=== PATIENT | male | born 1990 | race Caucasian/White ===

== ENCOUNTER 2016-10-26 14:49 | Emergency (ER) | payer BC ==
[2016-10-26 15:16] VITALS: BP 143/80
[2016-10-26] MEDS ORDERED: Albuterol/Ipratropium NEB.SOL* Albuterol 2.5 MG/Ipratropium 0.5 MG 3 ML INH ONE (15:37)
--- NOTE | 2016-10-26 15:57 | UC ---
Respiratory Complaint HPI - HPI Summary HPI Summary: NO PRIMARY CARE, RUNNING OUT OF ALBUTEROL AND FLOVENT; FOR THREE YEARS HAS BEEN MANAGING HIS ASTHMA THROUGH CONVENIENT CARES AND EMERGENCY DEPARTMENTS, GETTING REFILLS. HAS BEEN THREE YEARS SINCE ANY PEAK FLOW OR AND ASTHMA TESTING. PATIENT IS A SMOKER. - History of Current Complaint Chief Complaint: UCMedRefill Stated Complaint: MED REFILL Time Seen by Provider: 10/26/16 15:23 Hx Obtained From: Patient Onset/Duration: Gradual Onset, Lasting Weeks, Still Present Severity Initially: Mild Severity Currently: Mild Character: Cough: Nonproductive Aggravating Factors: Allergens, Exertion, Deep Breaths Alleviating Factors: Bronchodilator, OTC Meds Associated Signs And Symptoms: Positive: Wheezing - Risk Factors Pulmonary Embolism Risk Factors: Negative Cardiac Risk Factors: Smoking Pseudomonas Risk Factors: Negative Tuberculosis Risk Factors: Negative, Smoking - Allergies/Home Medications Allergies/Adverse Reactions: Allergies Allergy/AdvReac Type Severity Reaction Status Date / Time No Known Allergies Allergy Verified 10/26/16 15:16 PMH/Surg Hx/FS Hx/Imm Hx Previously Healthy: Yes Endocrine History Of: Denies: Diabetes, Thyroid Disease Cardiovascular History Of: Denies: Cardiac Disorders, Hypertension Respiratory History Of: Reports: Asthma Denies: COPD GI/ History Of: Denies: Ulcer - Surgical History Surgical History: Yes Surgery Procedure, Year, and Place: t&a - Family History Known Family History: Positive: None - Social History Occupation: Employed Full-time Lives: With Family Alcohol Use: Rare Substance Use Type: Cocaine, Marijuana Substance Use Comment - Amount & Last Used: daily - cocaine use on occassion Smoking Status (MU): Heavy Every Day Tobacco Smoker Amount Used/How Often: 1/2 ppd Household Exposure Type: Cigarettes Review of Systems Constitutional: Negative Skin: Negative Eyes: Negative ENT: Negative Respiratory: Shortness Of Breath, Cough Cardiovascular: Negative Gastrointestinal: Negative Genitourinary: Negative Motor: Negative Neurovascular: Negative Musculoskeletal: Negative Neurological: Negative Psychological: Negative All Other Systems Reviewed And Are Negative: Yes Physical Exam Triage Information Reviewed: Yes Appearance: Well-Appearing, No Pain Distress, Well-Nourished Vital Signs: Initial Vital Signs Temp 98.3 F 10/26/16 15:14 Pulse 82 10/26/16 15:14 Resp 20 10/26/16 15:14 BP 143/80 02/23/17 15:14 Pulse Ox 97 10/26/16 15:14 Vital Signs Reviewed: Yes Eye Exam: Normal ENT Exam: Normal ENT: Positive: Normal ENT inspection, Hearing grossly normal, Pharynx normal, TMs normal Dental Exam: Normal Neck exam: Normal Neck: Positive: Supple, Nontender, No Lymphadenopathy Respiratory: Positive: Chest non-tender, No respiratory distress, No accessory muscle use, Wheezing. Negative: Respiratory distress, Decreased breath sounds, Accessory muscle use Cardiovascular Exam: Normal Cardiovascular: Positive: RRR, No Murmur, Pulses Normal, Brisk Capillary Refill Abdominal Exam: Normal Abdomen Description: Positive: Nontender, No Organomegaly Musculoskeletal Exam: Normal Musculoskeletal: Positive: Strength Intact, ROM Intact Neurological Exam: Normal Psychological Exam: Normal Psychological: Positive: Normal Response To Family Skin Exam: Normal UC Diagnostic Evaluation - Laboratory O2 Sat by Pulse Oximetry: 97 Respiratory Course/Dx - Differential Dx/Diagnosis Differential Diagnosis/HQI/PQRI: Asthma, Bronchitis, Exacerbation Of COPD, Sinusitis, Tuberculosis Provider Diagnoses: ASTHMA Discharge - Discharge Plan Condition: Stable Disposition: HOME Prescriptions: Albuterol HFA INHALER* [Ventolin HFA Inhaler*] 1 - 2 puff INH Q4H PRN #1 mdi PRN Reason: Wheezing Fluticasone HFA 110 mcg(NF) [Flovent HFA 110 mcg(NF)] 1 puff INH BID #1 mdi Patient Education Materials: Asthma (ED), Bronchospasm (ED) Referrals: [facility] PHYSICIAN REFERRAL [Outside] Joaquim Wilkins MD [Medical Doctor] - No Primary Care Phys,NOPCP [Primary Care Provider] - Additional Instructions: YOUR VISIT HISTORY SUGGESTS THAT YOUR ASTHMA HAS BEEN UNMANAGED BY ANY PRIMARY CARE PHYSICIAN FOR THREE YEARS. YOU ARE STRONGLY ADVISED TO SEEK ASTHMA MAINTENANCE AND EVALUATION FOR THIS CONCERN THROUGH PRIMARY CARE. REFERRAL SERVICE INFORMATION HAS BEEN GIVEN TO YOU TO ADDRESS THIS CONCERN.
== END 2016-10-26 16:17 | disposition home or self-care (01) ==
LOC: UCEAST 14:49
DX: J45.909 Unspecified asthma, uncomplicated (principal); Z76.0 Encounter for issue of repeat prescription; R03.0 Elevated blood-pressure reading, without diagnosis of hypertension; F14.90 Cocaine use, unspecified, uncomplicated; F12.90 Cannabis use, unspecified, uncomplicated; F17.210 Nicotine dependence, cigarettes, uncomplicated
CPT/HCPCS: 99212; A9270-GY; G0463

== ENCOUNTER 2018-06-04 18:47 | Observation (INO) | payer SELFPAY ==
[2018-06-04] MEDS ORDERED: methylPREDNISolone 125 MG* 2 ML VIAL IV ONE (21:36)
[2018-06-04] MEDS ORDERED: Albuterol/Ipratropium NEB.SOL* Albuterol 2.5 MG/Ipratropium 0.5 MG 3 ML INH ONE (21:37)
[2018-06-04] MEDS ORDERED: NS 0.9% 1000 ML* 1,000 ML IV ONE (21:39)
[2018-06-04] MEDS ORDERED: Magnesium Sulfate 2 GM IV* 2 GM/50 ML BAG IVPB ONE (21:39)
--- NOTE | 2018-06-04 21:39 | ED ---
Asthma - HPI Summary HPI Summary: This patient is a 27 year old M presenting to [facility] accompanied by his girlfriend with a chief complaint of SOB since 1 month ago. He endorses frequently using rx albuterol inhaler and nebulizer; 7 or 8x today. He endorses productive cough with yellow sputum, diffuse CP. He denies chills. Pt endorses 1x admission to hospital for asthma a long time ago. - History of Current Complaint Chief Complaint: EDAsthma Stated Complaint: CHEST PAIN/DIFFICULTY BREATHING Time Seen by Provider: 06/04/18 21:22 Hx Obtained From: Patient Onset/Duration: Gradual Onset, Lasting Weeks, Still Present Timing: Constant Initial Severity: Moderate Current Severity: Moderate Pain Intensity: 4 Pain Scale Used: 0-10 Numeric Location/Character: Cough (Productive) Aggravating Symptoms: Nothing Alleviating Symptoms: Inhalers/Nebulizers Associated Signs and Symptoms: Positive: Shortness of Breath Related History: Similar Episode/Dx as - PMHx asthma - Allergy/Home Medications Allergies/Adverse Reactions: Allergies Allergy/AdvReac Type Severity Reaction Status Date / Time amoxicillin Allergy Unknown Verified 06/04/18 19:09 Reaction Details shellfish derived Allergy Anaphylatic Verified 06/04/18 19:09 Shock PMH/Surg Hx/FS Hx/Imm Hx Endocrine/Hematology History: Denies: Hx Diabetes, Hx Thyroid Disease Cardiovascular History: Denies: Hx Hypertension Respiratory History: Reports: Hx Asthma Denies: Hx Chronic Obstructive Pulmonary Disease (COPD) GI History: Denies: Hx Ulcer History: Denies: Hx Dialysis Sensory History: Denies: Hx Legally Blind, Hx Deafness Opthamlomology History: Denies: Hx Legally Blind EENT History: Denies: Hx Deafness - Surgical History Surgery Procedure, Year, and Place: t&a Infectious Disease History: No Infectious Disease History: Denies: Hx Hepatitis, Hx Human Immunodeficiency Virus (HIV), History Other Infectious Disease, Traveled Outside the [place] in Last 30 Days - Family History Known Family History: Negative: Blood Disorder - Social History Lives: With Family Alcohol Use: Rare Substance Use Type: Reports: Cocaine, Marijuana Substance Use Comment - Amount & Last Used: daily - cocaine use on occassion Smoking Status (MU): Heavy Every Day Tobacco Smoker Amount Used/How Often: 1/2 ppd Review of Systems Negative: Fever, Chills Positive: Chest Pain Positive: Shortness Of Breath, Cough Positive: no symptoms reported All Other Systems Reviewed And Are Negative: Yes Physical Exam - Summary Physical Exam Summary: VITAL SIGNS: Reviewed. GENERAL: Patient is a well-developed and nourished male who is lying comfortable in the stretcher. Patient is not in any acute respiratory distress. HEAD AND FACE: No signs of trauma. No ecchymosis, hematomas or skull depressions. No sinus tenderness. EYES: PERRLA, EOMI x 2, No injected conjunctiva, no nystagmus. EARS: Hearing grossly intact. Ear canals and tympanic membranes are within normal limits. MOUTH: Oropharynx within normal limits. NECK: Supple, trachea is midline, no adenopathy, no JVD, no carotid bruit, no c- spine tenderness, neck with full ROM. CHEST: Symmetric, no tenderness at palpation LUNGS: No crackles. Inspiratory and expiratory wheezes. CVS: Regular rate and rhythm, S1 and S2 present, no murmurs or gallops appreciated. ABDOMEN: Soft, non-tender. No signs of distention. No rebound no guarding, and no masses palpated. Bowel sounds are normal. EXTREMITIES: FROM in all major joints, no edema, no cyanosis or clubbing. NEURO: Alert and oriented x 3. No acute neurological deficits. Speech is normal and follows commands. SKIN: Dry and warm Triage Information Reviewed: Yes Vital Signs On Initial Exam: Initial Vitals Temp Pulse Resp BP Pulse Ox 98.1 F 112 20 127/83 94 06/04/18 19:03 06/04/18 19:03 06/04/18 19:03 06/04/18 19:03 06/04/18 19:03 Vital Signs Reviewed: Yes Diagnostics - Vital Signs Vital Signs Temp Pulse Resp BP Pulse Ox 06/04/18 19:03 98.1 F 112 20 127/83 94 - Laboratory Result Diagrams: 06/04/18 21:54 06/04/18 21:54 Lab Statement: Any lab studies that have been ordered have been reviewed, and results considered in the medical decision making process. - Radiology CXR Xray Interpretation: No Acute Changes Radiology Interpretation Completed By: ED Physician - No acute process. Pending official imaging report. Asthma Course/Dx - Course Course Of Treatment: A 27-year-old M presents to the ED with a CC of SOB secondary to PMHx asthma for 1 month. (+) wheeze, CP, productive cough. (-) fever, chills. 7-8 uses of albuterol inhaler and nebulizer today. A CXR was (-) . In the ED course, pt was given ventolin, duoneb, magnesium sulfate, solumedrol , and nl saline. - Diagnoses Provider Diagnoses: Asthma - Provider Notifications Discussed Care Of Patient With: Marisela Hall Time Discussed With Above Provider: 23:13 Instructed by Provider To: Other - accepts admission Discharge - Sign-Out/Discharge Documenting (check all that apply): Patient Departure - admit - Discharge Plan Condition: Fair Disposition: ADMITTED TO [facility] Referrals: No Primary Care Phys,NOPCP [Primary Care Provider] - - Attestation Statements Document Initiated by Scribe: Yes Documenting Scribe: Mike Gomez Provider For Whom Scribe is Documenting (Include Credential): Dr. Leta Camp MD Scribe Attestation: Mike Spencer, scribed for Dr. Leta Camp MD on 06/04/18 at 2313.
[2018-06-04] MEDS ORDERED: Albuterol 2.5 MG/3 ML NEB.SOL* (0.083%) INH SCH (22:00)
[2018-06-04 22:02] LABS: ABS Basophils 0.1 10^3/ul (0-0.2); ABS Eosinophils 0.8 10^3/ul (0-0.6); ABS Lymphocytes 2.4 10^3/ul (1.0-4.8); ABS Monocytes 1.1 10^3/ul (0-0.8); ABS Neutrophils 4.5 10^3/ul (1.5-7.7); ABS Nucleated RBC 0 10^3/ul; Hematocrit 49 % (42-52); Hemoglobin 17.1 g/dl (14.0-18.0); Lymphocyte % 27.5 % (25-47); Mean Corpuscular HGB Conc 35 g/dl (31-36); Mean Corpuscular Hemoglobin 30 pg (27-31); Mean Corpuscular Volume 87 fL (80-94); Mean Platelet Volume 7.2 um3 (7.4-10.4); Nucleated Red Blood Cells % 0.2; Platelet Count 359 10^3/ul (150-450); Red Blood Count 5.63 10^6/ul (4.00-5.40); Red Cell Distribution Width 13 % (10.5-15); White Blood Count 8.9 10^3/ul (3.5-10.8)
[2018-06-05] MEDS ORDERED: Acetaminophen TAB* 325 MG PO PRN (00:16)
[2018-06-05] MEDS ORDERED: Ondansetron INJ* 2 MG/ML VIAL IV PRN (00:16)
[2018-06-05] MEDS ORDERED: Al Hydrox/Mg Hydrox/Simet LIQ* 30 ML UDC PO PRN (00:16)
[2018-06-05] MEDS ORDERED: Albuterol/Ipratropium NEB.SOL* Albuterol 2.5 MG/Ipratropium 0.5 MG 3 ML INH PRN (00:18)
[2018-06-05] MEDS ORDERED: Albuterol 2.5 MG/3 ML NEB.SOL* (0.083%) INH PRN (00:18)
[2018-06-05] MEDS ORDERED: Nicotine Inhaler* 10 MG AMP INH PRN (00:31)
[2018-06-05] MEDS ORDERED: Mouth Piece, Nicotine* 1 EACH CARTRIDGE INH PRN (00:31)
[2018-06-05] MEDS ORDERED: Mouth Piece, Nicotine* 1 EACH CARTRIDGE INH ONE (00:31)
[2018-06-05] MEDS: NS 0.9% 1000 ML* 1,000 ML IV SCH ×2 (01:21→08:07)
--- NOTE | 2018-06-05 05:20 | HP ---
CC: Primary care physician at the [facility] * HISTORY AND PHYSICAL: DATE OF ADMISSION: 06/05/18 TIME OF EVALUATION: 0000. PRIMARY CARE PHYSICIAN: Primary care physician at the [facility]. CHIEF COMPLAINT: Shortness of breath. HISTORY OF PRESENT ILLNESS: This is a 27-year-old male with past medical history of asthma and tobacco use who presented to the emergency room with worsening shortness of breath. The patient states he has had issues with mold and mildew at his house. He began with asthma symptoms of cough, shortness of breath about a month ago. He moved out last week. His shortness of breath has continued with coughing. He feels short of breath at rest. He has a productive cough with constant chest pain. He has had some issues with posttussive emesis as well. He does have albuterol inhaler with no spacer and a nebulizer that he has been using almost as frequently as every hour with no improvement in his symptoms. He denies any fevers. No abdominal symptoms or urinary symptoms. He states he has been gaining weight. No lower extremity swelling. Otherwise, review of systems negative. In the emergency room, the patient had labs, imaging. He was given a liter of fluids, Solu-Medrol 125, magnesium, DuoNeb and referred to the hospitalist service for further evaluation. PAST MEDICAL HISTORY: 1. Asthma. 2. Tobacco use. 3. Marijuana use. MEDICATIONS: Albuterol MDI and nebulizer as needed. ALLERGIES: AMOXICILLIN AND SHELLFISH. FAMILY HISTORY: Parents are alive and healthy. Sister does have exercise- induced asthma. SOCIAL HISTORY: The patient lives with his girlfriend, Rajni Shelley, who is his healthcare proxy. He smokes 3 cigarettes per day. He uses marijuana nearly daily. No alcohol use. He works as a cook. Code status: Full code. REVIEW OF SYSTEMS: A 14-point review of systems as mentioned in the HPI, otherwise negative. PHYSICAL EXAMINATION GENERAL: No acute distress. Resting comfortably with his girlfriend at the bedside. VITAL SIGNS: Temp 98.1, pulse rate 92, respiratory rate 20, oxygen saturation 95% on 3 L, blood pressure 149/90. HEENT: Head: Normocephalic. Pupils are equal and reactive. Anicteric. Oropharynx: Mucous membranes are moist. NECK: Supple. No lymphadenopathy. RESPIRATORY: Diminished breath sounds. Bilateral coarse expiratory wheezing. No increased work of breathing. No tachypnea. CARDIAC: Regular rate and rhythm. Soft systolic murmur heard throughout. ABDOMEN: Soft, nontender, nondistended. EXTREMITIES: No clubbing, cyanosis or edema. +1 DPs. NEUROLOGICAL: Alert and oriented x3. No gross focal neurologic deficits. LABORATORY DATA: White count 8.9, hemoglobin 7.1, platelets 359,000. Sodium 139, potassium 4.1, chloride 104, bicarb 28. BUN 16, creatinine 1.03. Glucose 88. Total bilirubin 1.5. AST 41, ALT 82. RADIOGRAPHIC DATA: Chest x-ray is unremarkable. ASSESSMENT AND PLAN: This is a 27-year-old male with past medical history of asthma and tobacco use who presented to the emergency room with 1 month of worsening cough, chest pain, shortness of breath. 1. Asthma exacerbation. Assessment: The patient with asthma exacerbation, may likely be secondary to the mold, mildew exposure that he has since moved out of. No other associated symptoms of viral syndrome or bacterial infection. Chest x-ray is unremarkable. He does have chest pain. He does not have any cardiac risk factors. Plan: We will check an EKG. Continue treatment for asthma exacerbation including continue prednisone, albuterol, DuoNeb and start him on Dulera. The patient is concerned about insurance and cost of his medications. We will consult social work to help assist with this. If the patient is not improving clinically, would recommend further workup at this time. No further workup is indicated. 2. Tobacco use. We will prescribe an inhaler. 3. Elevated LFTs A. Mild elevation. Suspect underlying HURTADO. Recommend outpatient work up for further evaluation 4. FEN. Regular diet with IV fluids. 5. DVT prophylaxis. The patient scores moderate risk. Place him on heparin subcu t.i.d. 6. Code status: Full code. TIME SPENT: Greater than 45 minutes were spent doing the history and physical, more than half the time was spent in direct patient contact. [id number]/[facility] #: [id number] MTDD
[2018-06-05] MEDS ORDERED: Heparin VIAL(*) 5000 UNITS/ML VIAL (FIVE THOUSAND) SUBCUT SCH (06:00)
[2018-06-05] MEDS: Albuterol 2.5 MG/3 ML NEB.SOL* (0.083%) INH SCH ×2 (07:27→10:55)
--- NOTE | 2018-06-05 07:53 | RAD ---
Indication: Shortness of breath. Asthma. Comparison: No relevant prior exams available on the [facility] PACS for comparison. Technique: Upright AP 2200 hours Report: Mild patchy consolidation at the LEFT lower lung zone without volume loss suspicious for potential pneumonia. Negative for pleural effusion or pneumothorax. The heart, pulmonary vasculature, and mediastinal contours are unremarkable. IMPRESSION: #. Mild patchy consolidation at the LEFT lower lung zone without volume loss suspicious for potential pneumonia. R1
[2018-06-05] MEDS ORDERED: Mometasone/Formoter 200/5 MDI INH SCH (09:00)
[2018-06-05] MEDS ORDERED: predniSONE TAB* 20 MG PO SCH (09:00)
[2018-06-05 13:05] VITALS: BP 166/62
--- NOTE | 2018-06-06 04:40 | DS ---
CC: Dr. Marisela Hall; Dr. Leta Camp * DISCHARGE SUMMARY: DATE OF ADMISSION: DATE OF DISCHARGE: 06/05/18 DISCHARGE DIAGNOSES: As follows: 1. Asthma exacerbation. 2. Tobacco abuse, the patient was advised to quit smoking. HISTORY OF PRESENT ILLNESS/HOSPITAL COURSE: The patient is a 27-year-old gentleman with history of asthma and tobacco abuse, who presented to the emergency room with worsening shortness of breath where he stated that he has had issues with mold and mildew at his house and his asthma symptoms began worsening, which started with cough, then shortness of breath about a month ago. He mentioned that he moved out last week from his house; however, he continued coughing and felt short of breath leading to his presentation where he was diagnosed with asthma exacerbation. Today, he feels better with good air entry on exam and only occasional squeaks on exam. The patient also had an ambulatory sats prior to his discharge and has done well, not requiring any additional oxygen or any form of oxygen on discharge. The patient had been advised to follow up and/or call his PCP within 3 days post discharge. He was advised that if his symptoms resume or develop new ones or feel unwell for any reason to call his PCP and if his PCP cannot entertain him due to his scheduling issues alone to call [facility] if the issue is non- emergent. He was advised to stop smoking and to use his nicotine inhalers prescribed for him instead. He was advised to call my office regarding any questions, concerns, or further clarifications regarding his discharge plans and/or prescriptions and to take his medications as prescribed. REVIEW OF SYSTEMS: The patient denied any recent headaches, dizziness, fevers, chills, nausea, vomiting. His shortness of breath has significantly improved. Denies any chest pain. Denied any abdominal pain, diarrhea, constipation, pain , and/or increased frequency on urination, myalgias, arthralgias, throat pain, or new skin lesions. The rest of the 14-point review of systems are otherwise unremarkable. PHYSICAL EXAMINATION: Shows the most recent vital signs of records with temperature of 98 degree Fahrenheit, saturating at 97% on room air, blood pressure of 166/62 from 153/53 and 136/69. General Appearance: The patient is awake, alert, and oriented x3, not in acute distress. HEENT: Normocephalic, atraumatic. PERRLA. Extraocular muscles intact. Negative for icterus. Moist oral mucosa. Negative throat erythema. Neck is soft, supple with no cervical lymphadenopathy, no JVD. Heart: S1, S2 within normal limits. Regular rate and rhythm. No murmurs, rubs, or gallops. Chest: Occasional squeaks, but otherwise with good air entry. No rales, no rhonchi, no wheezes appreciated. Abdomen is soft, nondistended, nontender. Normoactive bowel sounds x4 Q. Extremities: No cyanosis, clubbing, or edema. Psychiatric: No active psychosis, depression, suicidal nor homicidal ideation. Skin is warm to touch. DISCHARGE MEDICATIONS: As follows: 1. Dulera 200/5 MDI 2 puffs inhalation b.i.d. 2. Nicotine inhaler 10 mg inhaler q.2 hours p.r.n. 3. Prednisone taper as prescribed. 4. Albuterol HFA inhaler q.4 hours p.r.n. 5. Amlodipine 2.5 mg p.o. daily. TIME SPENT: The total time spent evaluating the patient, reviewing pertinent data, and appropriate documentation is 35 minutes. [id number]/[facility] #: [id number] TIGIST
== END 2018-06-05 15:00 | disposition home or self-care (01) ==
LOC: ED 18:47 → MED 06-05 00:16
PROVIDERS: ADMIT Pediatrics; ATTEND Student in an Organized Health Care Education/Training Program
DX: J45.901 Unspecified asthma with (acute) exacerbation (principal); F17.210 Nicotine dependence, cigarettes, uncomplicated; R74.8 Abnormal levels of other serum enzymes; Z79.899 Other long term (current) drug therapy; Z88.0 Allergy status to penicillin
CPT/HCPCS: 36415; 71045; 80053; 83880; 84484; 85025; 87070; 87205; 94640; 96361; 96365; 96375; 99284; A9270-GY; G0378; J2930; J3475; J7512

== ENCOUNTER 2018-09-13 03:40 | Observation (INO) | payer SELFPAY ==
[2018-09-13] MEDS ORDERED: Albuterol/Ipratropium NEB.SOL* Albuterol 2.5 MG/Ipratropium 0.5 MG 3 ML INH ONE (03:57)
[2018-09-13] MEDS ORDERED: methylPREDNISolone 125 MG* 2 ML VIAL IV ONE (03:58)
[2018-09-13] MEDS ORDERED: Magnesium Sulfate 2 GM IV* 2 GM/50 ML BAG IVPB ONE (03:59)
[2018-09-13] MEDS ORDERED: NS 0.9% 1000 ML** 1,000 ML IV ONE (03:59)
--- NOTE | 2018-09-13 04:00 | ED ---
Asthma - HPI Summary HPI Summary: This pt is a 28 y/o male presenting to [facility] c/o asthma exacerbation. Pt reports he has been coughing for 1 week or more, associated with SOB. Pt has used his asthma inhaler "50 times over the past 4 hours." Denies fever, chest pain, nausea, vomiting. He does not have a PCP and his inhaler is prescribed by the [facility]. Pt states he can't afford anything else. Pt is a former smoker, quit in June 2018. PMHx: pt has had asthma all his life. He has never been intubated in the past. Pt has been admitted twice last year for asthma. - History of Current Complaint Chief Complaint: EDAsthma Stated Complaint: ASTHMA Time Seen by Provider: 09/13/18 03:47 Hx Obtained From: Patient Onset/Duration: Lasting Weeks - at least 1, Still Present Timing: Weeks Current Severity: Moderate Pain Intensity: 4 Pain Scale Used: 0-10 Numeric Location/Character: Cough (Nonproductive) Aggravating Symptoms: Nothing Alleviating Symptoms: Nothing Associated Signs and Symptoms: Positive: Shortness of Breath - Allergy/Home Medications Allergies/Adverse Reactions: Allergies Allergy/AdvReac Type Severity Reaction Status Date / Time amoxicillin Allergy Unknown Verified 09/13/18 03:52 Reaction Details shellfish derived Allergy Anaphylatic Verified 09/13/18 03:52 Shock PMH/Surg Hx/FS Hx/Imm Hx Endocrine/Hematology History: Denies: Hx Diabetes, Hx Thyroid Disease Cardiovascular History: Denies: Hx Hypertension Respiratory History: Reports: Hx Asthma Denies: Hx Chronic Obstructive Pulmonary Disease (COPD) GI History: Denies: Hx Ulcer History: Denies: Hx Dialysis Sensory History: Denies: Hx Contacts or Glasses, Hx Legally Blind, Hx Deafness, Hx Hearing Aid Opthamlomology History: Denies: Hx Contacts or Glasses, Hx Legally Blind - Surgical History Surgery Procedure, Year, and Place: t&a Infectious Disease History: No Infectious Disease History: Denies: Hx Hepatitis, Hx Human Immunodeficiency Virus (HIV), History Other Infectious Disease, Traveled Outside the [place] in Last 30 Days - Family History Family History: sister with exercise-induced asthma. - Social History Alcohol Use: Rare Substance Use Type: Reports: Cocaine, Marijuana Substance Use Comment - Amount & Last Used: daily - cocaine use on occassion Smoking Status (MU): Former Smoker - quit June 2018 Amount Used/How Often: 1/2 ppd Review of Systems Negative: Fever, Chills Negative: Chest Pain Positive: Shortness Of Breath, Cough Negative: Vomiting, Nausea All Other Systems Reviewed And Are Negative: Yes Physical Exam - Summary Physical Exam Summary: VITAL SIGNS: Reviewed. GENERAL: Patient is a well-developed and nourished male who is lying comfortable in the stretcher. Patient is not in any acute respiratory distress. HEAD AND FACE: No signs of trauma. No ecchymosis, hematomas or skull depressions. No sinus tenderness. EYES: PERRLA, EOMI x 2, No injected conjunctiva, no nystagmus. EARS: Hearing grossly intact. Ear canals and tympanic membranes are within normal limits. MOUTH: Oropharynx within normal limits. NECK: Supple, trachea is midline, no adenopathy, no JVD, no carotid bruit, no c- spine tenderness, neck with full ROM. CHEST: Symmetric, no tenderness at palpation LUNGS: Bilateral expiratory wheezes. CVS: Regular rate and rhythm, S1 and S2 present, no murmurs or gallops appreciated. ABDOMEN: Soft, non-tender. No signs of distention. No rebound no guarding, and no masses palpated. Bowel sounds are normal. EXTREMITIES: FROM in all major joints, no edema, no cyanosis or clubbing. NEURO: Alert and oriented x 3. No acute neurological deficits. Speech is normal and follows commands. SKIN: Dry and warm Triage Information Reviewed: Yes Vital Signs On Initial Exam: Initial Vitals Temp Pulse Resp BP Pulse Ox 97.4 F 132 24 156/131 92 09/13/18 03:40 09/13/18 03:40 09/13/18 03:40 09/13/18 03:40 09/13/18 03:40 Vital Signs Reviewed: Yes Diagnostics - Vital Signs Vital Signs Temp Pulse Resp BP Pulse Ox 09/13/18 03:40 97.4 F 132 24 156/131 92 - Laboratory Result Diagrams: 09/13/18 04:04 09/13/18 04:04 Lab Statement: Any lab studies that have been ordered have been reviewed, and results considered in the medical decision making process. - Radiology Chest XR Radiology Interpretation Completed By: ED Physician Summary of Radiographic Findings: No acute process. Pending official radiology report. Asthma Course/Dx - Course Assessment/Plan: Pt is a 28 y/o male who presents with asthma exacerbation. Pt reports he has been coughing for 1 week or more, associated with SOB. Pt has used his asthma inhaler "50 times over the past 4 hours." Denies fever, chest pain, nausea, vomiting. He does not have a PCP and his inhaler is prescribed by the [facility]. Blood work obtained. WBC of 12.3. Chest XR shows no acute process. Pending official radiology report. In the ED course the pt was given IV fluids, albuterol, duoneb, solu-medrol, magnesium sulfate. I discussed pt care with Dr. Garcia, hospitalist, who accepted the pt for admission. - Diagnoses Provider Diagnoses: Asthma - Provider Notifications Discussed Care Of Patient With: Tevin Garcia - hospitalist Time Discussed With Above Provider: 05:00 Instructed by Provider To: Admit As Inpatient Discharge - Sign-Out/Discharge Documenting (check all that apply): Patient Departure - Admit to [facility] - Discharge Plan Condition: Stable Disposition: ADMITTED TO [facility] Referrals: No Primary Care Phys,NOPCP [Primary Care Provider] - - Attestation Statements Document Initiated by Scribe: Yes Documenting Scribe: Rae Smith Provider For Whom Scribe is Documenting (Include Credential): Leta Camp MD Scribe Attestation: IRae, scribed for Leta Camp MD on 09/13/18 at 0503. Status of Scribe Document: Ready
[2018-09-13 04:16] LABS: ABS Basophils 0.1 10^3/ul (0-0.2); ABS Eosinophils 1.3 10^3/ul (0-0.6); ABS Monocytes 1.1 10^3/ul (0-0.8); ABS Neutrophils 6.7 10^3/ul (1.5-7.7); ABS Nucleated RBC 0 10^3/ul; Eosinophil % 10.8 %; Hematocrit 48 % (42-52); Hemoglobin 16.4 g/dl (14.0-18.0); Lymphocyte % 24.2 %; Mean Corpuscular HGB Conc 34 g/dl (31-36); Mean Corpuscular Hemoglobin 30 pg (27-31); Mean Corpuscular Volume 87 fL (80-94); Mean Platelet Volume 7.6 fL (7.4-10.4); Nucleated Red Blood Cells % 0.3; Platelet Count 343 10^3/ul (150-450); Red Blood Count 5.54 10^6/ul (4.00-5.40); Red Cell Distribution Width 13 % (10.5-15); White Blood Count 12.3 10^3/ul (3.5-10.8)
[2018-09-13 04:31] LABS: Albumin 4.8 g/dL (3.2-5.2); Albumin/Globulin Ratio 1.8 (1-3); BUN/Creatinine Ratio 15.8 (8-20); C Reactive Protein 6.69 mg/L (<8.01); Calcium 9.5 mg/dL (8.6-10.3); EGFR Non-African American 89.3 (>60); Globulin 2.6 g/dL (2-4); Potassium 3.7 mmol/L (3.5-5.0); Total Bilirubin 0.8 mg/dL (0.2-1.0); Total Protein 7.4 g/dL (6.4-8.9)
[2018-09-13] MEDS: Albuterol 2.5 MG/3 ML NEB.SOL* (0.083%) INH SCH ×2 (04:40→04:53)
[2018-09-13] MEDS ORDERED: Albuterol/Ipratropium NEB.SOL* Albuterol 2.5 MG/Ipratropium 0.5 MG 3 ML INH SCH (07:00)
[2018-09-13] MEDS: Albuterol/Ipratropium NEB.SOL* Albuterol 2.5 MG/Ipratropium 0.5 MG 3 ML INH PRN ×2 (08:53→12:53)
[2018-09-13] MEDS: Enoxaparin(*) 40 MG/0.4 ML SYR SUBCUT SCH (09:02)
[2018-09-13] MEDS: Mometasone/Formoter 200/5 MDI INH SCH ×2 (09:46→19:21)
--- NOTE | 2018-09-13 10:17 | HP ---
HISTORY AND PHYSICAL: DATE OF ADMISSION: 09/13/18 PRIMARY CARE PHYSICIAN: None. He receives most of his care through the [facility] with Do Aj MD. CHIEF COMPLAINT: Shortness of breath, wheezing. HISTORY OF PRESENT ILLNESS: Alen Faulkner is a 28-year-old male with past medical history of asthma, continued marijuana smoking, and former tobacco smoking who a few weeks ago had what they think is an RSV infection that first hit him, then his infant daughter and then his girlfriend. He has had progressively worse asthma symptoms since that time and especially over the last week. The day and the day prior to admission, he has used his Ventolin HFA inhaler approximately 50 times in the last 7 hours and presented to the [facility] Emergency Room. There, he was found to be tachycardic in the 120s, tachypneic in the mid 20s but as high as 58, satting 92% on room air, afebrile, and within normal limits chest x-ray. He received 4 albuterol nebulizer treatments at 4:29 , 4:40, and 4:53; 2 g of magnesium at 4:08 and Solu-Medrol 125 mg at 4:08, and though feeling much improved, still wheezing significantly and was referred to the hospitalist service for admission. He tells he has quit smoking since his last admission here in June, cigarettes that is, but still was a daily marijuana smoker until last week. He states that he used to have much better controlled asthma when he had insurance and could afford medications, which have included in the past nebulizer treatments and Dulera and Advair at various points in time. He does have a nebulizer machine at home, but has not been able to afford any nebulizer treatments. He also attests to chest pain like his lungs are filled with lead. This has dissipated greatly since presentation to the emergency room. PAST MEDICAL HISTORY: Includes severe asthma, continued marijuana use, former smoker. MEDICATIONS: Include Ventolin HFA 1 to 2 puffs inhaled q.4 hours p.r.n. ALLERGIES: AMOXICILLIN (unknown) and SHELLFISH (anaphylactic shock). FAMILY HISTORY: Both parents alive, but with hypertension. Sister with exercise- induced asthma. SOCIAL HISTORY: The patient works as a cook. He lives with his girlfriend, Rajni Shelley, who he shares an infant daughter with. No alcohol use. He desires to be full code. He had been smoking marijuana daily until 1 week ago. Former smoker (quit in June 2018) REVIEW OF SYSTEMS: Complete 14-point review of systems negative except as per HPI. He attested that he had some flank pain that has resolved since admission. PHYSICAL EXAMINATION GENERAL APPEARANCE: Sitting in position in bed. VITAL SIGNS: Temperature 97.4; heart rate between 122 and 149; respiratory rate between 18 and 58; satting between 91 and 97% on room air; blood pressure 156/131, currently 136/87. HEENT: Normocephalic, atraumatic. Pupils are equally round and reactive to light. Extraocular motions intact. No scleral icterus. Moist mucous membranes. NECK: No cervical lymphadenopathy. Supple. LUNGS: Coarse bilateral wheezing, worse in the expiratory phase. No rhonchi or rales. CARDIOVASCULAR: Tachycardic. Regular rate. No murmurs, rubs, or gallops. ABDOMEN: Soft, nontender, nondistended. EXTREMITIES: Warm, well perfused. No peripheral edema. NEUROLOGICAL: Cranial nerves II through XII intact. Moving all extremities. SKIN: No lesions. No rashes. LABORATORY DATA: White count 12.3, hemoglobin 16.4, hematocrit 48, platelets 343 ,000. Sodium 140, potassium 3.7, chloride 107, carbon dioxide 24, BUN 16, creatinine 1.01, glucose 119. AST 28, ALT 65, alk phos 54. CRP 6.7. Albumin 4.8. Chest x-ray: No acute process per my read or any official report. ASSESSMENT AND PLAN: Alen Faulkner is a 28-year-old male with past medical history of severe asthma complicated by financial constrictions on medication therapy and also continued daily marijuana use in the setting of RSV infection a few weeks prior, which seems to have set him on a downward spiral. He is status post 125 mg Solu-Medrol in the ED, continue 40mg q.8 hours. Continue Duo -Neb q.4 hour scheduled and q.2 hours p.r.n. and if necessary, continuous. Start Dulera. As noted, the chest x-ray is unremarkable but we will await official read. Important will be smoking cessation not only of cigarettes which he has been successful in stopping, but also the marijuana will be very useful in his further management. Could consider pulmonary consult if clinically deteriorates. For now, I think he is improved enough that he is stable for the floor, but may need escalation of care to the ICU if he worsens again. He can eat an unrestricted diet. He is a full code. I suspect his tachycardia is related to his respiratory distress and inhaled beta agonist administration. [id number]/[facility] #: [id number] MTDD
[2018-09-13] MEDS ORDERED: methylPREDNISolone SOD 40 MG* 1 ML VIAL IV SCH (12:00)
[2018-09-13] MEDS: Albuterol/Ipratropium NEB.SOL* Albuterol 2.5 MG/Ipratropium 0.5 MG 3 ML INH SCH ×2 (13:04→19:14)
--- NOTE | 2018-09-13 14:22 | PN ---
Subjective Date of Service: 09/13/18 Interval History: Pt seen and examined. Meds and labs reviewed. CC: N/A ROS: Denied ARZATE/dizziness, F/C, N/V, CP, SOB, increased cough, sputum production , abd pain, diarrhea, constipation, dysuria, myalgias, arthralgias, throat pain , and new skin lesions. The rest of the 14 point ROS are unremarkable. PHYSICAL EXAM: GEN APPEARANCE: Asleep, arousable, not in acute distress HEENT: NC/AT, PERRLA, moist oral mucosa, (-) throat erythema NECK: Soft, supple, (-) cervical LAD, (-)JVD HEART: S1S2 WNL, RRR, No MRG CHEST: CTA, BL, GAE, (+)Wheezing, slightly poor air entry at bases, No R/R ABD: Soft, ND/NT, NABS 4x Q EXT: No C/C/E SKIN: Warm to touch PSYCH: No active psychosis, hallucinations, depression, SI/HI Objective Active Medications: Albuterol (Ventolin 2.5 Mg/3 Ml Neb.Maria T*) 2.5 mg INH Q2H PRN PRN Reason: SOB/WHEEZING Albuterol/Ipratropium (Duoneb (Albuterol 2.5 Mg/Ipratropium 0.5 Mg)) 1 neb INH [id number] AWAKE [facility] Last Admin: 09/13/18 13:04 Dose: Not Given Enoxaparin Sodium (Lovenox(*)) 40 mg SUBCUT Q24H [facility] Last Admin: 09/13/18 09:02 Dose: Not Given Methylprednisolone Sodium Succinate (Solu-Medrol 125mg *) 60 mg IV Q8H [facility] Mometasone Furoate/Formoterol Fumar (Dulera 200/5 Mdi*) 2 puff INH BID [facility] Last Admin: 09/13/18 09:46 Dose: Not Given Montelukast Sodium (Singulair Tab*) 10 mg PO DAILY@2100 [facility] Vital Signs - 8 hr 09/13/18 09/13/18 09/13/18 06:25 06:41 06:54 Temperature 97.4 F Pulse Rate 118 124 Respiratory 18 22 19 Rate Blood Pressure 132/78 143/77 (mmHg) O2 Sat by Pulse 91 92 Oximetry 0109/13/18 09/13/18 07:59 08:00 08:05 Temperature 97.9 F Pulse Rate 114 108 Respiratory 22 18 Rate Blood Pressure 145/52 (mmHg) O2 Sat by Pulse 92 98 96 Oximetry 09/13/18 10:58 Temperature 98.5 F Pulse Rate 115 Respiratory 22 Rate Blood Pressure 166/64 (mmHg) O2 Sat by Pulse 96 Oximetry Oxygen Devices in Use Now: None Result Diagrams: 09/13/18 04:04 09/13/18 04:04 Assess/Plan/Problems-Billing Assessment: - Patient Problems (1) Asthma exacerbation Current Visit: Yes Status: Acute Code(s): J45.901 - UNSPECIFIED ASTHMA WITH (ACUTE) EXACERBATION SNOMED Code(s): 467202297 Comment: -Continue nebs as ordered -Continue Dulera -Increase Solumedrol as prescribed -Given severe asthma exacerbation w/increase Eosinophils, would likely do well with addition of Montelukast, w/c/ has been ordered -Continue watchful waiting (2) HTN (hypertension) Current Visit: Yes Status: Acute Code(s): I10 - ESSENTIAL (PRIMARY) HYPERTENSION SNOMED Code(s): 40712035 Comment: -Advised lifestyle modifications -Place pt on heart healthy diet -Continue watchful waiting (3) DVT prophylaxis Current Visit: Yes Status: Acute Code(s): YYL2255 - SNOMED Code(s): 605584352 Comment: -Will place pt on Lovenox Status and Disposition: -For ambulatory sats in AM -Possible D/C in 1-2 days -For Fasting lipid level -For TSH check in AM -For Hba1c screening -Pt does not have PCPtouched base w/primary care nurse practitioner and SW to see later
[2018-09-13] MEDS: Albuterol 2.5 MG/3 ML NEB.SOL* (0.083%) INH PRN (17:41)
[2018-09-13] MEDS: methylPREDNISolone 125 MG* 2 ML VIAL IV SCH (20:35)
[2018-09-13] MEDS: Montelukast Sodium TAB* 10 MG PO SCH (20:36)
[2018-09-14] MEDS: Albuterol/Ipratropium NEB.SOL* Albuterol 2.5 MG/Ipratropium 0.5 MG 3 ML INH SCH ×7 (00:57→23:45)
[2018-09-14] MEDS: methylPREDNISolone 125 MG* 2 ML VIAL IV SCH ×2 (03:50→12:07)
[2018-09-14] MEDS: Mometasone/Formoter 200/5 MDI INH SCH ×2 (07:43→19:10)
[2018-09-14] MEDS: Enoxaparin(*) 40 MG/0.4 ML SYR SUBCUT SCH (08:14)
[2018-09-14 08:37] LABS: Hematocrit 46 % (42-52); Hemoglobin 15.5 g/dl (14.0-18.0); Mean Corpuscular HGB Conc 34 g/dl (31-36); Mean Corpuscular Hemoglobin 30 pg (27-31); Mean Corpuscular Volume 88 fL (80-94); Mean Platelet Volume 7.7 fL (7.4-10.4); Platelet Count 364 10^3/ul (150-450); Red Blood Count 5.19 10^6/ul (4.00-5.40); Red Cell Distribution Width 13 % (10.5-15); White Blood Count 17.4 10^3/ul (3.5-10.8)
[2018-09-14 09:09] LABS: Albumin 4.2 g/dL (3.2-5.2); Albumin/Globulin Ratio 1.4 (1-3); Calcium 9.4 mg/dL (8.6-10.3); EGFR African American 103.3 (>60); EGFR Non-African American 85.4 (>60); Globulin 3.1 g/dL (2-4); Magnesium 2.2 mg/dL (1.9-2.7); Phosphorus 4.5 mg/dL (2.5-5.0); Total Bilirubin 0.8 mg/dL (0.2-1.0); Total Protein 7.3 g/dL (6.4-8.9)
[2018-09-14] MEDS: Albuterol/Ipratropium NEB.SOL* Albuterol 2.5 MG/Ipratropium 0.5 MG 3 ML INH PRN (10:48)
--- NOTE | 2018-09-14 12:48 | PN ---
Subjective Date of Service: 09/14/18 Interval History: Pt seen and examined. Meds and labs reviewed. CC: Mild hemoptysis. Mentioned that his baby was diagnosed w/RSV a few days/ weeks ago. ROS: Denied ARZATE/dizziness, F/C, N/V, CP, SOB, increased cough, sputum production , abd pain, diarrhea, constipation, dysuria, myalgias, arthralgias, throat pain , and new skin lesions. The rest of the 14 point ROS are unremarkable. PHYSICAL EXAM: GEN APPEARANCE: Awake, not in acute distress HEENT: NC/AT, PERRLA, moist oral mucosa, (-) throat erythema NECK: Soft, supple, (-) cervical LAD, (-)JVD HEART: S1S2 WNL, RRR, No MRG CHEST: CTA, BL, GAE, (+)Wheezing, (+)GAE, No R/R ABD: Soft, ND/NT, NABS 4x Q EXT: No C/C/E SKIN: Warm to touch PSYCH: No active psychosis, hallucinations, depression, SI/HI Objective Active Medications: Albuterol (Ventolin 2.5 Mg/3 Ml Neb.Maria T*) 2.5 mg INH Q2H PRN PRN Reason: SOB/WHEEZING Last Admin: 09/13/18 17:41 Dose: 2.5 mg Albuterol/Ipratropium (Duoneb (Albuterol 2.5 Mg/Ipratropium 0.5 Mg)) 1 neb INH [id number] AWAKE [facility] Last Admin: 09/14/18 07:43 Dose: 1 neb Enoxaparin Sodium (Lovenox(*)) 40 mg SUBCUT Q24H [facility] Last Admin: 09/14/18 08:14 Dose: Not Given Methylprednisolone Sodium Succinate (Solu-Medrol 125mg *) 60 mg IV Q8H [facility] Last Admin: 09/14/18 03:50 Dose: 60 mg Mometasone Furoate/Formoterol Fumar (Dulera 200/5 Mdi*) 2 puff INH BID [facility] Last Admin: 09/14/18 07:43 Dose: 2 puff Montelukast Sodium (Singulair Tab*) 10 mg PO DAILY@2100 [facility] Last Admin: 09/13/18 20:36 Dose: 10 mg Vital Signs - 8 hr 09/14/18 09/14/18 09/14/18 02:59 07:45 07:46 Temperature 98.4 F Pulse Rate 81 111 117 Respiratory 16 20 18 Rate Blood Pressure 130/50 (mmHg) O2 Sat by Pulse 97 99 99 Oximetry Oxygen Devices in Use Now: Nasal Cannula Result Diagrams: 09/14/18 08:10 09/14/18 08:10 Assess/Plan/Problems-Billing Assessment: - Patient Problems (1) Asthma exacerbation Current Visit: Yes Status: Acute Code(s): J45.901 - UNSPECIFIED ASTHMA WITH (ACUTE) EXACERBATION SNOMED Code(s): 398955342 Comment: -Likely induced by viral bronchitis as pt mentions his baby was just recently diagnosed and treated for RSV -Continue nebs as ordered -Continue Dulera -Mild leukocytosis increased w/increase in Solumedrol as prescribed. Will begin rapid taper now -Continue Montelukast given eosinophilia -Continue watchful waiting -Mild hemoptysis likely due to above w/possible viral bronchitis; D-dimer (-) (2) HTN (hypertension) Current Visit: Yes Status: Acute Code(s): I10 - ESSENTIAL (PRIMARY) HYPERTENSION SNOMED Code(s): 88326353 Comment: -Improved when pt no longer in respiratory distress and may have been elevated due to distress as well -Advised lifestyle modifications -Place pt on heart healthy diet -Continue watchful waiting (3) DVT prophylaxis Current Visit: Yes Status: Acute Code(s): UZG3413 - SNOMED Code(s): 972676049 Comment: -Continue Lovenox Status and Disposition: -For ambulatory sats in AM -Possible D/C in 1-2 days; D/W [facility] of employee pharmacy for outpt options given pt does not have insurrance -For Fasting lipid level -For TSH check in AM -For Hba1c screening -Pt does not have PCP and insurance touched base w/career development manager yesterday and plan is to set him up for Medicaid
[2018-09-14] MEDS: Albuterol 2.5 MG/3 ML NEB.SOL* (0.083%) INH PRN (14:48)
[2018-09-14] MEDS: methylPREDNISolone SOD 40 MG* 1 ML VIAL IV SCH ×2 (17:10→18:01)
[2018-09-14] MEDS: Montelukast Sodium TAB* 10 MG PO SCH (20:16)
[2018-09-15] MEDS: methylPREDNISolone SOD 40 MG* 1 ML VIAL IV SCH ×2 (00:49→10:10)
[2018-09-15] MEDS: Albuterol 2.5 MG/3 ML NEB.SOL* (0.083%) INH PRN (00:55)
[2018-09-15] MEDS: Albuterol/Ipratropium NEB.SOL* Albuterol 2.5 MG/Ipratropium 0.5 MG 3 ML INH SCH ×3 (03:33→09:57)
[2018-09-15] MEDS: Mometasone/Formoter 200/5 MDI INH SCH ×2 (08:23→10:00)
[2018-09-15] MEDS: Enoxaparin(*) 40 MG/0.4 ML SYR SUBCUT SCH (10:01)
[2018-09-15 11:40] VITALS: BP 151/75
--- NOTE | 2018-09-15 13:28 | DS ---
CC: Dr. Tevin Garcia; Dr. Leta Camp; Dr. Bhavana Royal * DISCHARGE SUMMARY: DATE OF ADMISSION: DATE OF DISCHARGE: 09/15/18 DISCHARGE DIAGNOSES: As follows: 1. Asthma exacerbation, likely secondary to exposure to upper respiratory tract infection from respiratory syncytial virus recently diagnosed from his daughter. 2. Hypertension, improved, advised lifestyle modifications for now. DISCHARGE MEDICATIONS: As follows: 1. Dulera 200/5 two puffs inhalation b.i.d. 2. Montelukast 10 mg p.o. daily. 3. Albuterol HFA 1 puff inhalation q.4 p.r.n. 4. Prednisone rapid taper. HISTORY OF PRESENT ILLNESS/HOSPITAL COURSE: The patient is a 28-year-old gentleman with history of asthma and has had previous history of smoking, who a few weeks prior to admission mentioned that his daughter who is currently still a has been diagnosed with RSV and he then began having some progressive shortness of breath and wheezing that brought him to the ED on 09/13/18, where he was diagnosed to have asthma exacerbation. He had been ruled out for pneumonia as well as DVT with a normal D-dimer and chest x-ray. He was placed on frequent nebulizations as well as Solu-Medrol and given his mildly elevated eosinophilia on his CBC differentials, he was placed on montelukast and has subsequently improved. The patient had been advised to follow up and/or call his new PCP/PCP of choice to schedule a followup given he does not have any insurance. He was also seen by our clinical social work therapist and has begun application for Medicaid and he was therefore advised to follow up and call his clinical social work therapist to make sure that he gets Medicaid as planned LAURYN. He was also informed that his BP is right on the cusp of needing treatment; however, at this time given he does not have any medical insurance and is otherwise a young individual, he was advised conservative management at this time and was advised to lose weight and to make sure that he cuts down on his sodium and unsaturated fat intake. If his conservative approach fails within 3 months, he was advised to discuss his BP control with his PCP and/or [facility] on followup. Since he has declined his blood to be drawn prior to his discharge, he was kindly asked to check with his PCP to see if an HbA1c or a repeat fasting glucose could be done given the blocklayer glucose, two of them were found to be elevated and one of them was not fasting. The first one done was when he was just recently admitted and could be impaired simply because of recent stress and evaluation during admission and therefore he was asked that this will need to be confirmed by either an HbA1c and/or a fasting blood sugar. He was advised to also get a fasting lipid level to make his cholesterol levels are at goal, which can be done as an outpatient. He was advised to try to begin a healthy exercise regimen which can improve his BP as well as prevent a host of chronic medical issue such as heart disease and diabetes. If he needed refills and have not yet been seen by his PCP of choice, he was advised to contact [facility]. If his symptoms resume or develop new ones or feel unwell for any reason, he was advised to call his PCP and if his PCP cannot entertain him due to scheduling issues alone, he was advised to call [facility] if the issue is nonemergent. He was advised to call my office regarding any questions , concerns, or further clarifications regarding his discharge plans and/or prescriptions and to take his medications as prescribed. REVIEW OF SYSTEMS: Currently, the patient denies any headaches, dizziness, fevers, chills, nausea, vomiting, chest pain, shortness of breath, increased coughing or sputum production, abdominal pain, diarrhea, constipation, pain and/ or increased frequency on urination, myalgias, arthralgias, throat pain, or new skin lesions. The rest of the 14-point review of systems is otherwise unremarkable. PHYSICAL EXAMINATION: Show the most recent vital signs of record with blood pressure of 151/75 from 129/59 and 130/43; saturating at 95% on room air; 98.2 degrees Fahrenheit, afebrile throughout his hospital stay; heart rate of 77 per minute; and 18 per minute respiratory rate. General Appearance: The patient is awake, alert, and oriented x3, not in acute distress, obese. HEENT: Normocephalic, atraumatic. PERRLA. Extraocular muscles intact. Negative for icterus. Moist oral mucosa. Negative throat erythema. Neck is soft, supple with no cervical lymphadenopathy, no JVD. Heart: S1, S2 within normal limits. Regular rate and rhythm. No murmurs, rubs, or gallops. Chest: Clear to auscultation bilaterally. Good air entry. No wheezes, rales, or rhonchi. Abdomen is soft, nondistended, nontender. Normoactive bowel sounds x4 quadrants. Extremities: No cyanosis, clubbing, or edema. Psychiatric: No active psychosis, depression, suicidal or homicidal ideation. Skin is warm to touch. TIME SPENT: The total time spent evaluating the patient, reviewing pertinent data, and appropriate documentation is 45 minutes. [id number]/[facility] #: [id number] TIGIST
== END 2018-09-15 13:05 | disposition home or self-care (01) ==
LOC: ED 03:40 → MED 05:35
PROVIDERS: ADMIT Internal Medicine; ATTEND Student in an Organized Health Care Education/Training Program
DX: J45.901 Unspecified asthma with (acute) exacerbation (principal); I10 Essential (primary) hypertension; Z88.0 Allergy status to penicillin; Z87.891 Personal history of nicotine dependence
CPT/HCPCS: 36415; 71045; 80053; 83735; 84100; 85025; 85027; 85379; 86140; 94640; 96365; 96366; 96375; 96376; 99284; A9270-GY; G0378; J1650; J2920; J2930; J3475